=== PATIENT | female | born 1995 | race Hispanic/Latino ===

== ENCOUNTER 2017-08-14 05:19 | Emergency (ER) | payer BC ==
[2017-08-14] MEDS ORDERED: predniSONE 20 MG TAB ONE (05:44)
--- NOTE | 2017-08-14 09:07 | RAD ---
CHEST 1 VIEW: HISTORY: Shortness of breath. COMPARISON: None. FINDINGS: Lungs are clear. No pneumothorax or effusion. Cardiac silhouette and mediastinal contour is normal. IMPRESSION: No acute intrathoracic abnormality. POS: [facility]
== END 2017-08-14 05:55 | disposition home or self-care (01) ==
LOC: ERS 05:19
DX: J45.909 Unspecified asthma, uncomplicated (principal); F41.9 Anxiety disorder, unspecified
CPT/HCPCS: 71045; 94640; J7506; J7620

== ENCOUNTER 2018-08-02 16:28 | Emergency (ER) | payer BC ==
[2018-08-02] MEDS ORDERED: Ondansetron ODT 4 MG TAB ONE (18:42)
[2018-08-02] MEDS ORDERED: Acetaminophen 325 MG TAB ONE (18:42)
== END 2018-08-02 19:19 | disposition home or self-care (01) ==
LOC: ERS 16:28
DX: O99.511 Diseases of the respiratory system complicating pregnancy, first trimester (principal); J10.1 Influenza due to other identified influenza virus with other respiratory manifestations; J45.909 Unspecified asthma, uncomplicated; Z3A.13 13 weeks gestation of pregnancy
CPT/HCPCS: 87804; 99283; Q0162

== ENCOUNTER 2018-09-25 14:26 | Outpatient (CLI) | payer OTHER ==
--- NOTE | 2018-09-25 15:35 | ULT ---
US OB Complete STANDARD History: [Anatomy scan] Comparison: None. Findings: Real-time grayscale, color, and spectral analysis of the gravid uterus was performed transa bdominal approach. The placenta is posterior with caudal tip within 2 cm of the internal os. Single viable intrauterine with average ultrasound age 21 week 0 day with estimated date of delivery February 01, 2019. This may weight is 13 ounces, 13th percentile. Biometry: Biparietal diameter 4.93 cm, 21 week 0 day Head circumference: 18.66 cm, 21 week 0 day Abdominal scar was: 15.46 cm, 20 week 5 day Femur length: 3.48 cm, 21 weeks 0 day. heart rate documented at 146 bpm. Adequate amniotic fluid. The presentation is transverse to the maternal right. Anatomy: Head, cerebellum, cisterna magna, lateral ventricles, four-chamber heart, stomach, kidneys, cord inse rtion, bladder, spine, lips/nose, upper extremities, lower extremities, three-vessel cord are all normal. Impression: Normal single viable intrauterine . The placental caudal margin is within 2 cm t he internal os.
== END 2018-09-25 14:27 | disposition home or self-care (01) ==
LOC: BICULT 14:26
PROVIDERS: ATTEND Family Medicine
DX: Z34.82 Encounter for supervision of other normal pregnancy, second trimester (principal); Z3A.21 21 weeks gestation of pregnancy
CPT/HCPCS: 76805

== ENCOUNTER 2019-01-24 21:00 | Inpatient (IN) | payer MEDICAID, OTHER, SELFPAY ==
[2019-01-25] MEDS ORDERED: Butorphanol Tartrate 1 MG/ML VIAL SLOW IVP PRN (09:28)
[2019-01-25] MEDS ORDERED: Methylergonovine 0.2 MG/ML VIAL IM PRN (09:28)
[2019-01-25] MEDS ORDERED: Diphenoxylate HCl/Atropine Tablet PO PRN (09:28)
[2019-01-25] MEDS ORDERED: NS w/ Oxytocin 10 units 500 ML IV SCH ×2 (09:28)
[2019-01-25] MEDS ORDERED: Lidocaine 1% (PF) 30 ML VIAL SC PRN (09:28)
[2019-01-25] MEDS ORDERED: Ondansetron PF 4 MG/2 ML Vial IVP PRN ×2 (09:28→20:40)
[2019-01-25] MEDS ORDERED: Promethazine HCl 25 MG/ML VIAL IM PRN ×2 (09:28→20:40)
[2019-01-25] MEDS ORDERED: HYDROcodone/Acetaminophen 5/325 mg Tablet PO PRN (09:28)
[2019-01-25] MEDS ORDERED: Misoprostol 200 MCG TAB PR PRN (09:28)
[2019-01-25] MEDS ORDERED: hydrALAZINE 20 MG/ML VIAL SLOW IVP PRN (09:28)
[2019-01-25] MEDS ORDERED: Ibuprofen 800 MG TAB PO PRN (09:28)
[2019-01-25] MEDS ORDERED: Carboprost 250 MCG/ML AMP IM PRN (09:28)
[2019-01-25 10:31] VITALS: BMI 39.1
[2019-01-25] MEDS: Lactated Ringer's 1,000 ML IV SCH ×3 (10:41→22:34)
[2019-01-25 10:50] LABS: Hemoglobin 12.4 g/dL (12.0-16.0); Mean Corpuscular HGB CONC 34.6 g/dL (32.0-36.0); Mean Corpuscular Hemoglobin 31.8 pg (27.0-31.0); Mean Corpuscular Volume 91.9 fL (78.0-98.0); Mean Platelet Volume 7.2 fL (7.4-10.4); Platelet Count 276 thou/uL (130-400); RBC Distribution Width 13.1 % (11.5-14.5); White Blood Cell (WBC) Count 7.4 thou/uL (4.8-10.8)
[2019-01-25] MEDS: Misoprostol 100 MCG TAB PO SCH (11:16)
[2019-01-25 11:44] LABS: Syphilis Antibody Nonreactive (Nonreactive); Syphilis Antibody Index 0.06 S/CO (<1.00 Non-Reactive)
[2019-01-25 11:45] LABS: HBSAg Index 0.18 S/CO (0-0.99); Hep B Surf Ag Non-Reactive S/CO (NonReactive)
[2019-01-25] MEDS ORDERED: Penicillin G Potassium 5 MILL.UNITS in Sodium Chloride 0.9% 100 ML IVPB SCH (13:45)
[2019-01-25] MEDS: Penicillin G 2.5 MILL.units 2.5 MILL.UNITS in Premix Bag 1 BAG IVPB SCH ×2 (18:28→22:38)
[2019-01-25] MEDS ORDERED: Fentanyl 4 mcg/Bup 0.1% Cadd 100 ML ONE (19:18)
[2019-01-25] MEDS ORDERED: Lidocaine 1.5%/Epinephrine 1:200,000 5 ML AMPUL IJ ONE (19:19)
[2019-01-25] MEDS ORDERED: diphenhydrAMINE 50 MG/ML VIAL IVP PRN (20:40)
[2019-01-25] MEDS ORDERED: ePHEDrine/0.9% NaCl/PF SYRINGE 50 mg/10 ml SLOW IVP PRN (20:40)
[2019-01-25] MEDS ORDERED: Lactated Ringer's 500 ML IV PRN (20:40)
[2019-01-25] MEDS ORDERED: Naloxone HCl 0.4 mg/ml Vial IVP PRN ×2 (20:40)
[2019-01-25] MEDS ORDERED: Acetaminophen 325 MG TAB PO PRN (20:40)
[2019-01-25] MEDS ORDERED: Communication Order-Pharmacy FS SCH (20:45)
[2019-01-25] MEDS ORDERED: Fentanyl 4 mcg/Bupivacaine 0.1% Cassette 100 ML EPIDURAL SCH (20:45)
[2019-01-26] MEDS ORDERED: Lidocaine 1% (PF) 30 ML VIAL ONE (02:10)
[2019-01-26] MEDS: NS / Oxytocin 40 units/1000ml 1,000 ML IV PRN ×2 (02:50→04:20)
[2019-01-26] MEDS ORDERED: Bisacodyl 10 MG SUPP PR PRN (05:27)
[2019-01-26] MEDS ORDERED: HYDROcodone/Acetaminophen 5/325 mg Tablet PO PRN ×2 (05:27)
[2019-01-26] MEDS ORDERED: Benzocaine-Menthol 82.5 ML CAN TOP PRN (05:27)
[2019-01-26] MEDS ORDERED: Milk Of Magnesia 30 ML UDCUP PO PRN (05:27)
[2019-01-26] MEDS ORDERED: Adacel (T-DAP) 0.5 ML SYRINGE IM ONE (05:27)
[2019-01-26] MEDS ORDERED: Ondansetron PF 4 MG/2 ML Vial IVP PRN (05:27)
[2019-01-26] MEDS ORDERED: hydrALAZINE 20 MG/ML VIAL SLOW IVP PRN (05:27)
[2019-01-26] MEDS ORDERED: diphenhydrAMINE 25 MG CAP PO PRN (05:27)
[2019-01-26] MEDS ORDERED: NS / Oxytocin 40 units/1000ml 1,000 ML IV SCH (05:27)
[2019-01-26] MEDS: Ibuprofen 800 MG TAB PO SCH ×3 (06:12→21:21)
[2019-01-26] MEDS: Misoprostol 100 MCG TAB PO SCH (06:14)
[2019-01-26] MEDS: Penicillin G 2.5 MILL.units 2.5 MILL.UNITS in Premix Bag 1 BAG IVPB SCH (06:14)
[2019-01-26] MEDS: Prenatal Vitamin 1 TAB PO SCH (09:10)
[2019-01-26] MEDS: Docusate Calcium (SURFAK) 240 MG CAP PO SCH ×2 (09:10→21:21)
[2019-01-26] MEDS: Ferrous Sulfate 325 MG TAB PO SCH ×2 (09:11→18:31)
[2019-01-26] MEDS ORDERED: Bupivacaine 0.25% HCL 30 ML VIAL ONE (11:11)
[2019-01-27] MEDS: Ibuprofen 800 MG TAB PO SCH ×2 (05:48→14:22)
[2019-01-27 05:56] LABS: Hemoglobin 10.9 g/dL (12.0-16.0); Mean Corpuscular Hemoglobin 32.7 pg (27.0-31.0); Mean Corpuscular Volume 93.3 fL (78.0-98.0); Mean Platelet Volume 7.1 fL (7.4-10.4); Platelet Count 216 thou/uL (130-400); RBC Distribution Width 13.3 % (11.5-14.5); Red Blood Cell (RBC) Count 3.34 mill/uL (4.20-5.40); White Blood Cell (WBC) Count 7.7 thou/uL (4.8-10.8)
[2019-01-27] MEDS: Prenatal Vitamin 1 TAB PO SCH (08:43)
[2019-01-27] MEDS: Docusate Calcium (SURFAK) 240 MG CAP PO SCH (08:43)
[2019-01-27] MEDS: Ferrous Sulfate 325 MG TAB PO SCH (09:11)
[2019-01-27 10:00] VITALS: BP 128/60; TEMP 97.7
--- NOTE | 2019-01-27 10:48 | DIS ---
DATE OF ADMISSION: 01/25/2019 DATE OF DISCHARGE: 01/27/2019 ADMITTING DIAGNOSIS: 1. Intrauterine at 39 weeks. 2. Induction of labor. DISCHARGE DIAGNOSES: 1. Intrauterine at 39 weeks. 2. Induction of labor. PROCEDURE: Term spontaneous vaginal delivery. HOSPITAL COURSE: The patient is a 24-year-old female, who presented for induction of labor. Her labor course was uncomplicated, resulting in a term spontaneous vaginal delivery. Her course has been uncomplicated. hemoglobin is 10.9, hematocrit 31.2, and platelets of 216,000. Today, the patient reports she is tolerating p.o., voiding on her own, having decreased lochia, and good pain control and has desire for discharge home. PHYSICAL EXAMINATION: VITAL SIGNS: Blood pressure is 118/58, temperature 97.6, pulse of 68, respiratory rate of 18, and saturating 99% on room air. GENERAL: She appears to be in no acute distress. She is alert and oriented, cooperative and pleasant to interact with. ABDOMEN: Fundus is firm at the umbilicus. EXTREMITIES: Nontender with symmetrical edema. The patient is being discharged to home. She has instructions to seek medical attention should she experience increasing pain, bleeding, or fever. , and she is scheduled to follow up with Dr. Tucker in 6 weeks for routine visit. Job ID: [id number]
== END 2019-01-27 16:52 | disposition home or self-care (01) | DRG 807 ==
LOC: L&D-LIB 01-25 09:53 → 3SE 01-26 06:08
PROVIDERS: ADMIT Family Medicine; ATTEND Family Medicine
PROC: 10907ZC Drainage of Amniotic Fluid, Therapeutic from Products of Conception, Via Natural or Artificial Opening (ICD-10-PCS; principal; 2019-01-26)
PROC: 10E0XZZ Delivery of Products of Conception, External Approach (ICD-10-PCS; 2019-01-26)
PROC: 3E0P7VZ Introduction of Hormone into Female Reproductive, Via Natural or Artificial Opening (ICD-10-PCS; 2019-01-26)
PROC: 3E033VJ Introduction of Other Hormone into Peripheral Vein, Percutaneous Approach (ICD-10-PCS; 2019-01-26)
PROC: 0HQ9XZZ Repair Perineum Skin, External Approach (ICD-10-PCS; 2019-01-26)
DX: O99.824 Streptococcus B carrier state complicating childbirth (principal); Z37.0 Single live birth; O70.0 First degree perineal laceration during delivery; Z3A.39 39 weeks gestation of pregnancy
CPT/HCPCS: 36415; 85027; 86780; 86850; 86900; 86901; 87340; J2001; J2540; J2590; J3490; S0020